=== PATIENT | female | born 1995 | race Caucasian/White ===

== ENCOUNTER → 2024-07-08 13:05 | Outpatient (REF) | payer BC, SELFPAY | LOC: PNTC 13:05 | PROVIDERS: ATTENDING PHYSICIAN Obstetrics & Gynecology | DX: Q56.4 Indeterminate sex, unspecified (principal); O35.EXX0 Maternal care for other (suspected) fetal abnormality and damage, fetal genitourinary anomalies, not applicable or unspecified; O35 Maternal care for known or suspected fetal abnormality and damage | CPT/HCPCS: 59000; 76815; 76946 ==

== ENCOUNTER 2024-11-21 19:57 | Inpatient (IN) | payer BC, SELFPAY ==
[2024-11-21 20:05] VITALS: BP 132/86; BMI 29.1
[2024-11-21] MEDS: CYTOTEC 50 MICROGRAM VAG (20:29)
[2024-11-21 20:32] LABS: Hematocrit 31.9 % (37.0-47.0); Hemoglobin 11.3 g/dL (12.0-16.0); Mean Corp Hgb Conc. 35.4 g/dL (33.0-37.0); Mean Corpuscular Volume 89.4 fL (81.0-99.0); Nucleated Red Blood Cells % 0 %; Platelet Count 149 10^3/uL (130-400); Red Cell Dist. Width 12.5 % (11.5-14.5)
[2024-11-21] MEDS: LR 1000 IV ×2 (21:15→23:09)
[2024-11-21] MEDS: BRETHINE 250 MCG SC (23:04)
[2024-11-22] MEDS: SUBLIMAZE 100 MCG EPIDURAL (09:34)
[2024-11-22] MEDS: FENTANYL/BUPIVACAINE 100 EPIDURAL ×2 (09:35→17:28)
[2024-11-22] MEDS: PITOCIN 30 UNITS/NSS 500 ML IV (17:28)
[2024-11-23] MEDS: FENTANYL/BUPIVACAINE 100 EPIDURAL (00:51)
[2024-11-23] MEDS: LR 1000 IV (02:49)
[2024-11-23 03:51] LABS: Hematocrit 36.5 % (37.0-47.0); Hemoglobin 12.4 g/dL (12.0-16.0); Mean Corp Hgb Conc. 34.0 g/dL (33.0-37.0); Mean Corpuscular Volume 91.9 fL (81.0-99.0); Platelet Count 139 10^3/uL (130-400); Red Cell Dist. Width 12.8 % (11.5-14.5)
[2024-11-23 04:14] LABS: AST (SGOT) 35 U/L (14-36); Albumin 3.3 g/dl (3.5-5.0); Alkaline Phosphatase 182 U/L (38-126); Blood Urea Nitrogen 23 mg/dl (7-17); Calcium 8.3 mg/dl (8.4-10.2); Carbon Dioxide 18 mmol/L (22-30); Chloride 107 mmol/L (98-107); Estimated Creatinine Clearance 35 ml/min; Glucose 107 mg/dl (70-99); Potassium 4.9 mmol/L (3.5-5.1); Sodium 133 mmol/L (135-145); Total Protein 5.9 g/dl (6.3-8.2); eGFR 32.11
[2024-11-23 04:24] LABS: ALT (SGPT) 24 U/L (0-35)
[2024-11-23] MEDS: TRANEXAMIC ACID 100 IV (06:00)
[2024-11-23 06:02] LABS: Cord ABG Comment CORD BLOOD
[2024-11-23] MEDS: HEMABATE 250 MCG IM (06:04)
[2024-11-23 06:05] LABS: B.E. Cord ABG -8.7 mMOL/L; HCO3 Cord ABG 17.9 mmol/L; O2 Saturation % Cord ABG 45.0 %; PCO2 Cord ABG 40 mmHg; PO2 Cord ABG 20 mmHg; pH Cord ABG 7.26
[2024-11-23 06:08] LABS: B.E. Cord ABG -8.6 mMOL/L; HCO3 Cord ABG 19.6 mmol/L; O2 Saturation % Cord ABG 28.0 %; PCO2 Cord ABG 49 mmHg; PO2 Cord ABG 12 mmHg; pH Cord ABG 7.21
[2024-11-23] MEDS: ZOFRAN 4 MG IV (06:19)
[2024-11-23 09:46] LABS: Blood Urea Nitrogen 23 mg/dl (7-17); Estimated Creatinine Clearance 41 ml/min
[2024-11-23] MEDS: MOTRIN 600 MG PO (20:00)
[2024-11-24 04:59] LABS: ALT (SGPT) 18 U/L (0-35); AST (SGOT) 37 U/L (14-36); Albumin 2.5 g/dl (3.5-5.0); Alkaline Phosphatase 113 U/L (38-126); Blood Urea Nitrogen 20 mg/dl (7-17); Calcium 8.0 mg/dl (8.4-10.2); Carbon Dioxide 23 mmol/L (22-30); Chloride 111 mmol/L (98-107); Estimated Creatinine Clearance 67 ml/min; Glucose 89 mg/dl (70-99); Potassium 4.4 mmol/L (3.5-5.1); Sodium 136 mmol/L (135-145); Total Protein 4.7 g/dl (6.3-8.2); eGFR > 60.00
[2024-11-24 05:06] LABS: Hematocrit 25.2 % (37.0-47.0); Hemoglobin 8.8 g/dL (12.0-16.0)
[2024-11-24] MEDS: MOTRIN 600 MG PO (06:38)
[2024-11-24] MEDS: TYLENOL 650 MG PO (06:39)
[2024-11-24] MEDS: PRENATAL PLUS 1 TABLET PO (08:42)
[2024-11-24] MEDS: FEOSOL 325 MG PO (08:42)
== END 2024-11-24 11:48 | disposition home or self-care (01) | DRG 807 ==
LOC: LDRP 19:57
PROVIDERS: Obstetrics & Gynecology; ADMITTING PHYSICIAN Obstetrics & Gynecology
PROC: 3E0P7VZ Introduction of Hormone into Female Reproductive, Via Natural or Artificial Opening (ICD-10-PCS; 2024-11-21)
PROC: 10907ZC Drainage of Amniotic Fluid, Therapeutic from Products of Conception, Via Natural or Artificial Opening (ICD-10-PCS; 2024-11-22)
PROC: 0UQMXZZ Repair Vulva, External Approach (ICD-10-PCS; 2024-11-23)
PROC: 6A550ZT Pheresis of Cord Blood Stem Cells, Single (ICD-10-PCS; 2024-11-23)
PROC: 10E0XZZ Delivery of Products of Conception, External Approach (ICD-10-PCS; 2024-11-23)
DX: O48.0 Post-term pregnancy (principal); Z37.0 Single live birth; Z3A.40 40 weeks gestation of pregnancy; O77.0 Labor and delivery complicated by meconium in amniotic fluid; N94.89 Other specified conditions associated with female genital organs and menstrual cycle; O70.0 First degree perineal laceration during delivery; O76 Abnormality in fetal heart rate and rhythm complicating labor and delivery; Z88.0 Allergy status to penicillin
CPT/HCPCS: 36415; 80053; 82565; 82803; 84520; 85014; 85018; 85025; 85027; 86780; 86850; 86900; 86901; 88307